=== PATIENT | male | born 1980 | race Caucasian/White ===

== ENCOUNTER 2017-12-22 10:47 | Day surgery (SDC) | payer OTHER ==
[2017-12-09 09:51] LABS: APPEARANCE,URINE CLEAR; BILIRUBIN,URINE NEGATIVE (NEGATIVE); COLOR,URINE YELLOW; GLUCOSE, URINE NEGATIVE (NEGATIVE); KETONES,URINE NEGATIVE (NEGATIVE); LEUKOCYTE ESTERASE,URINE NEGATIVE (NEGATIVE); NITRITE,URINE NEGATIVE (NEGATIVE); PROTEIN,URINE NEGATIVE (NEGATIVE); URINE SPECIFIC GRAVITY 1.003; UROBILINOGEN,URINE NEGATIVE mg/dL (<2.0)
[2017-12-09 10:47] LABS: HEMATOCRIT 45.5 % (37.9-51.0); HEMOGLOBIN 16.1 g/dL (13.5-17.0); MEAN CORPUSCULAR HEMOGLOBIN 32.9 pg (27.0-33.4); MEAN CORPUSCULAR HGB CONC 35.4 g/dL (32.0-36.0); MEAN CORPUSCULAR VOLUME 93 fl (80-97); PLATELET COUNT 192 10^3/uL (150-450); RED CELL DISTRIBUTION WIDTH 12.3 % (11.5-14.0); WHITE BLOOD COUNT 4.1 10^3/uL (4.0-10.5)
[2017-12-09 11:15] LABS: ANION GAP 12 (5-19); BLOOD UREA NITROGEN 27 mg/dL (7-20); CALCIUM 9.9 mg/dL (8.4-10.2); CARBON DIOXIDE 30 mmol/L (22-30); CHLORIDE 103 mmol/L (98-107); GLUCOSE 86 mg/dL (75-110); POTASSIUM 4.4 mmol/L (3.6-5.0); SODIUM 144.5 mmol/L (137-145)
--- NOTE | 2017-12-09 13:13 | EKG REPORT ---
SEVERITY:- ABNORMAL ECG - SINUS RHYTHM PROBABLE LEFT VENTRICULAR HYPERTROPHY ST ELEV, PROBABLE NORMAL EARLY REPOL PATTERN : Confirmed by: Marquez Hoskins MD 09-Dec-2017 13:12:50
[~2017-12-22 10:47] MED LIST: BUPIVACAINE HCL 0.5 % INJ/PF 30 ML SDV ONE; CEFAZOLIN 2 GM/D5W RTU 2 GM/50 ML RTUPB IV PRN; DEXAMETHASONE SOD PHOSPHATE INJ 4 MG/1 ML VIAL ONE; KETOROLAC TROMETHAMINE 60 MG/2 ML SDV ONE; LACTATED RINGERS 1000 ML IV PRN; LIDOCAINE 0.5% INJ-PF (5 MG/ML) 50 ML SDV SUBCUT PRN; ONDANSETRON HCL INJ/PF 4 MG/2 ML SDV ONE; ROCURONIUM BROMIDE INJ 50 MG/5 ML VIAL IV ONE; SUCCINYLCHOLINE CHLORIDE INJ 200 MG/10 ML VIAL ONE
[2017-12-22] MEDS ORDERED: FENTANYL CITRATE INJ/PF 100 MCG/2 ML AMPUL ONE ×2 (13:07)
[2017-12-22] MEDS ORDERED: ACETAMINOPHEN 1,000 MG/100 ML RTUPB IV ONE (13:08)
[2017-12-22] MEDS ORDERED: PROPOFOL INJ 200 MG/20 ML VIAL IV ONE (13:08)
[2017-12-22] MEDS ORDERED: MIDAZOLAM 2 MG/2 ML INJ ONE (13:08)
[2017-12-22] MEDS ORDERED: MEPERIDINE HCL/PF INJ 25 MG/1 ML DISP.SYRIN IV PRN (14:00)
[2017-12-22] MEDS ORDERED: DIPHENHYDRAMINE HCL 50 MG/ML VIAL IV PRN (14:00)
[2017-12-22] MEDS ORDERED: FENTANYL CITRATE INJ/PF 100 MCG/2 ML AMPUL IV PRN ×3 (14:00)
[2017-12-22] MEDS ORDERED: PROMETHAZINE HCL INJ 25 MG/1 ML VIAL IV PRN ×2 (14:00)
[2017-12-22] MEDS ORDERED: OXYCODONE-ACETAMINOPHEN 5-325 MG TABLET PO PRN (16:18)
[2017-12-22] MEDS ORDERED: ONDANSETRON HCL INJ/PF 4 MG/2 ML SDV IV PRN (16:18)
[2017-12-22] MEDS ORDERED: HYDROMORPHONE HCL INJ/PF 2 MG/ML AMPULE IV PRN (16:18)
--- NOTE | 2017-12-22 16:19 | Discharge Summary ---
Discharge Summary (SDC) - Discharge Final Diagnosis: Kienbock's Disease Right Wrist Date of Surgery: 12/22/17 Discharge Date: 12/22/17 Condition: Good Treatment or Instructions: Schedule Follow Up w/ Dr. Alexis Gupta @ [facility] to be seen in 10-14 days or as scheduled [place]: [place]: [place]: Ice and elevate Keep splint clean/dry/intact. If your fingers become numb please unwrap the Scottie wrap but leave the splint in place, if the sensation does not return within 30 minutes please return to the emergency department. May begin finger range of motion attempting to make full fist. Please use ibuprofen (Motrin or Advil) 600-800 mg every 8 hours as needed for pain or fever DO NOT TAKE w/ TORADOL may use once TORADOL complete. You may also use acetaminophen (Tylenol) 1000 mg every 4-6 hours as needed for pain or fever. Please be aware that many medications contain acetaminophen, do not exceed a total of 1000 mg of acetaminophen every 6 hours. If ibuprofen and acetaminophen are not sufficient for your pain you may take the Percocet/[place]. Please be aware that the Percocet/[place] does contain Tylenol. Stool softener of choice when on pain medication. Prescriptions: Ketorolac Tromethamine [Toradol 10 mg Tablet] 10 mg PO Q8 PRN #10 tablet PRN Reason: Oxycodone HCl/Acetaminophen [Percocet 7.5-325 mg Tablet] 1 each PO Q6 PRN #35 tablet PRN Reason: Discharge Diet: As Tolerated Discharge Activity: No Lifting Over 10 Pounds, No Lifting/Push/Pulling Report the Following to Your Physician Immediately: Fever over 101 Degrees, Unusual Bleeding, Redness, Swelling, Warmth, Increased Soreness
--- NOTE | 2017-12-22 16:41 | Operative Report ---
Operative Report DATE OF SURGERY: 12/22/17 PREOPERATIVE DIAGNOSIS: Kienbock's Disease Right Wrist POSTOPERATIVE DIAGNOSIS: Kienbock's Disease Right Wrist stage IIIA OPERATION: Right wrist arthroscopy with partial synovectomy. Right lunate vascularized bone graft 4,5 ECA. Right capitate shortening. PIN neurectomy SURGEON: SUZIE JAMESON ANESTHESIA: GA COMPLICATIONS: None ESTIMATED BLOOD LOSS: Minimal PROCEDURE: Indication for above procedure: 37-year-old male who is readily following up at the [facility] where he was diagnosed with kienbocks disease of the right wrist. Conservative management was attempted but patient continued to have discomfort. Ultimately had MRI confirming lunate necrosis with early evidence of collapse he was then sent to me for further evaluation and treatment. Patient I discussed treatment options in the office and then preoperatively as well. Given his neutral ulnar variance and stage IIIA classification I recommended operative intervention which included right wrist arthroscopy with possible vascularized bone graft, capitate shortening with PIN/AIN neurectomy. Risks and benefits of the operative procedure were explained to the patient patient verbalized understanding consented for the procedure. Procedure In Detail: Patient was seen and evaluated in the preoperative holding area. The Right upper extremity was initialized and marked. Patient received 2g of Ancef IV for bacterial prophylaxis. Patient was taken back to the operative room where transferred to the operative table and placed under general anesthesia. Once they were adequately anesthetized a nonsterile tourniquet was placed on the upper extremity. A surgical team debriefing was performed ensuring all instrumentation was available, the surgical procedure was discussed with possible concerns reviewed. The upper extremity was prepped with chlorhexidine and alcohol and draped in a sterile fashion. A timeout was done identifying correct patient, procedure and extremity everyone in attendance agree with this and verbalized no concerns. The extremity was exsanguinated the tourniquet was inflated to 250 mmHg. Patient was placed in the [facility] wrist arthroscopy tower with 10 pounds of traction. A 3-4 portal was established blunt dissection performed and arthroscope introduced into the radiocarpal joint. A 6R portal was established and diagnostic arthroscopy demonstrated small cartilage flap along the proximal lunate which was debrided with a full-radius resector. Remaining cartilage remained intact. There was fraying along the TFCC with synovitis within the prestyloid recess and thus a partial synovectomy was performed. Within the midcarpal joint the undersurface of the capitate and superior surface of the lunate remained intact. At that point decision was made to proceed with vascularized bone grafting and capitate shortening. Longitudinal skin incision was made connecting the midcarpal ulnar portal and 3- 4 portal. Blunt dissection performed. Superficial radial nerve was identified and retracted. Any small peripheral veins were coagulated with bipolar cautery. A Z shaped incision was made within the retinaculum of the fourth dorsal compartment. The fourth dorsal compartment contents were then retracted in a radial direction. The posterior interosseous nerve was identified and 1 cm excised. I then identified within the septum between the fourth and fifth dorsal compartments the fifth extra compartmental artery which was followed proximally to the anterior interosseous artery were bifurcated into the fourth extra compartmental artery. At this level the fourth extra compartmental artery was followed distally just adjacent to Perry's tubercle. I then turned my attention to the lunate prior to harvesting the bone graft. A T-shaped capsulotomy was made centered over the lunate. The lunate was identified there was necrotic bone evident but no evidence of cartilage damage at the capitolunate joint or radiocarpal joint. The capitate was then exposed. Given patient's neutral ulnar variance decision was made to proceed with capitate shortening. With C arm fluoroscopy the osteotomy site was identified. 2 mm of bone was excised along the central portion of the capitate. I then compressed the proximal and distal aspect of the capitate. The wrist was flexed and a K wire placed along the central position. This was then measured and the appropriate size mini Acutrak screw placed providing interfragmentary compression at the osteotomy site. A bur and irrigation was then utilized to wall out the necrotic portion of the lunate. Small curettes were used to debride the central portion of the lunate removing all necrotic bone. I then proceeded with vascularized bone graft harvesting. Once again the pedicle was followed proximally then distally the interosseous artery was tied off. A 0.45 K wire was placed to maggie out the osteotomy site. This was then finished with an osteotome. The vas right bone graft was then harvested. Extra cancellus bone graft was removed from the harvest site as well. The wound was then copiously irrigated with normal saline. Bone graft was filled into the defect created after debridement of the lunate. The pedicle was freed along the course of the fifth ECA which provided adequate amount of pedicle length. The vascularized bone graft was then impacted into the defect which provided adequate stability. I then placed a Gelfoam within the osteotomy defect. The capsulotomy was closed with interrupted 3-0 Ethibond suture. The retinaculum was loosely reapproximated with 4-0 Monocryl suture by Nordman was held within the fourth dorsal compartment to ensure no significant impingement. The tourniquet was then deflated. Any peripheral bleeding was controlled with bipolar cautery into the wound was dry. Subcutaneous tissues were closed with interrupted 4-0 Monocryl suture. Skin was closed with running horizontal mattress 4-0 nylon suture. 20 cc of 0.5% Marcaine without epinephrine was injected for postoperative pain control. A small incision was made just distal to the radial styloid. Blunt dissection was performed. Branches of the superficial radial nerve were identified and retracted and a drill guide placed. A scaphoid capitate pin with a 0.045 K wires 2 was then placed on load the lunate. These were then bent and cut above the skin. Wound was dressed with Xeroform 4 x 4's and patient was placed in a volar and dorsal fiberglass splint. Sponge counts, instrument counts, needle counts counts were correct. Patient was then awoken from anesthesia. Transferred from the operating room table to the operating room stretcher. There was no intraoperative complications patient tolerated procedure well stable to PACU. Postoperative plan: Patient will follow-up the office in 2 weeks at which point we will obtain radiographs of the Wrist. Patient will be transitioned to a short arm cast at that time. Anticipate K wire removal 6 weeks postoperatively.
--- NOTE | 2017-12-22 16:55 | RADIOLOGY REPORT (SQ) ---
EXAM DESCRIPTION: NO CHG FLUORO; WRIST RIGHT 2 VIEWS COMPLETED DATE/TIME: 12/22/2017 4:35 pm REASON FOR STUDY: ORIF RT WRIST COMPARISON: None. FLUOROSCOPY TIME: 1 minutes 65 Images saved to PACS LIMITATIONS: None. PROCEDURE: ORIF right wrist. FINDINGS: Images obtained from fluoro document the procedure. IMPRESSION: ORIF right wrist. Refer to operative note for further information. COMMENT: PQRS 6045F: Fluoroscopy time of the procedure is documented in the report. TECHNICAL DOCUMENTATION: JOB ID: [id number] [employer]- All Rights Reserved Reading location - IP/workstation name: [email or web address]
--- NOTE | 2017-12-22 16:55 | RADIOLOGY REPORT (SQ) ---
EXAM DESCRIPTION: NO CHG FLUORO; WRIST RIGHT 2 VIEWS COMPLETED DATE/TIME: 12/22/2017 4:35 pm REASON FOR STUDY: ORIF RT WRIST COMPARISON: None. FLUOROSCOPY TIME: 1 minutes 65 Images saved to PACS LIMITATIONS: None. PROCEDURE: ORIF right wrist. FINDINGS: Images obtained from fluoro document the procedure. IMPRESSION: ORIF right wrist. Refer to operative note for further information. COMMENT: PQRS 6045F: Fluoroscopy time of the procedure is documented in the report. TECHNICAL DOCUMENTATION: JOB ID: [id number] [employer]- All Rights Reserved Reading location - IP/workstation name: [email or web address]
[2017-12-22 18:51] VITALS: BP 124/78
== END 2017-12-22 19:02 | disposition home or self-care (01) ==
LOC: OROUT 10:47
PROVIDERS: ATTEND Orthopaedic Surgery
DX: M93.1 Kienbock's disease of adults (principal); M65.831 Other synovitis and tenosynovitis, right forearm
CPT/HCPCS: 93005; 36415; 85027; 80048; 81001; 73100; 93010; 64772; 29844; 25394; 25999; C1713; C1769; J2250; J3490 ×2; J1100; J1885; J3010; J1170; J0330; J2405; J2704; J0690; J0131; 01830